=== PATIENT | male | born 1990 | race Two or more races ===

== ENCOUNTER 2016-11-17 12:09 | Day surgery (SDC) | payer BC ==
[~2016-11-17] VITALS: Ht 185.4 cm; Wt 103.3 kg
[~2016-11-17 12:09] MED LIST: ACET325T14 PO; BUPIVACAINE/PF 0.25% ONE; EPINEPHRINE 1 MG/ML, 1ML ONE; LIDOCAINE/PF 1%, 30ML ONE; MIGRAINE MED; ROPIvacaine/PF 0.5%, 30 ML ONE
[2016-11-17 12:35] VITALS: BP 123/93
[2016-11-17] MEDS ORDERED: LACTATED RINGERS 1,000 ML IV SCH (13:00)
[2016-11-17] MEDS ORDERED: MIDAZOLAM 1 MG/ML, 2ML ONE (14:02)
[2016-11-17] MEDS ORDERED: FENTANYL PF 100 MCG/2ML ONE ×3 (14:02→15:15)
[2016-11-17] MEDS ORDERED: CEFAZOLIN 1,000 MG ONE (14:22)
[2016-11-17] MEDS ORDERED: ONDANSETRON 2MG/ML, 2ML ONE (14:22)
[2016-11-17] MEDS ORDERED: PROPOFOL 10 MG/ML, 20ML ONE ×3 (14:22)
[2016-11-17] MEDS ORDERED: DEXAMETHASONE 4 MG/ML, 1ML ONE (14:22)
[2016-11-17] MEDS ORDERED: ACETAMINOPHEN 650 MG/20.3 ML UDC ONE (15:15)
[2016-11-17] MEDS ORDERED: OXYcodone 5 MG/5 ML ORAL.SOL UDC ONE (15:15)
[2016-11-17] MEDS: FENTANYL PF 100 MCG/2ML IV PRN ×3 (15:17→15:39)
[2016-11-17] MEDS ORDERED: MEPERIDINE/PF 25MG/0.5ML ONE (15:23)
[2016-11-17] MEDS ORDERED: OXYcodone 5 MG/5 ML ORAL.SOL UDC PO PRN (15:30)
[2016-11-17] MEDS ORDERED: ACETAMINOPHEN 325 MG TABLET PO PRN (15:30)
[2016-11-17] MEDS ORDERED: HYDROmorphone 1 MG/ML, 1ML IV PRN ×2 (15:30→17:30)
[2016-11-17] MEDS ORDERED: PROMETHAZINE 25 MG/ML, 1ML IV PRN (15:30)
[2016-11-17] MEDS ORDERED: HYDROcodone/APAP 7.5-325MG/15ML UDC PO PRN (15:30)
[2016-11-17] MEDS ORDERED: MEPERIDINE/PF 25MG/0.5ML IVPush PRN (15:30)
[2016-11-17] MEDS ORDERED: HYDROmorphone 1 MG/ML, 1ML ONE (15:40)
[2016-11-17] MEDS ORDERED: KETOROLAC 30 MG/1 ML ONE (17:23)
[2016-11-17] MEDS ORDERED: KETOROLAC 30 MG/1 ML IVPush PRN (17:30)
[2016-11-17] MEDS ORDERED: HYDROmorphone 2 MG/ML, 1ML ONE (17:32)
== END 2016-11-17 18:20 ==
LOC: OUT 12:09
PROVIDERS: ATTEND Orthopaedic Surgery
DX: S83.252A Bucket-handle tear of lateral meniscus, current injury, left knee, initial encounter (principal); M94.262 Chondromalacia, left knee; X58.XXXA Exposure to other specified factors, initial encounter; Y93.89 Activity, other specified; Y92.89 Other specified places as the place of occurrence of the external cause; Y99.8 Other external cause status
CPT/HCPCS: 29879; 29882; J0171; J0690; J1100; J1170; J1885; J2175; J2250; J2405; J2704; J2795; J3010; J3490; J7120

== ENCOUNTER 2017-06-01 18:30 | Emergency (ER) | payer BC ==
[~2017-06-01] VITALS: Ht 188 cm; Wt 103.0 kg
[~2017-06-01 18:30] MED LIST changes: -BUPIVACAINE/PF 0.25% ONE; -EPINEPHRINE 1 MG/ML, 1ML ONE; -LIDOCAINE/PF 1%, 30ML ONE; -ROPIvacaine/PF 0.5%, 30 ML ONE
[2017-06-01 18:36] VITALS: BP 141/80
[2017-06-01 19:40] LABS: MICROSCOPIC NOT IND
[2017-06-01 19:46] LABS: CULTURE INDICATED? NO
[2017-06-01] MEDS ORDERED: KETOROLAC 30 MG/1 ML ONE (19:53)
[2017-06-01] MEDS ORDERED: METHOCARBAMOL 750 MG TABLET ONE (19:53)
[2017-06-01] MEDS ORDERED: KETOROLAC 30 MG/1 ML IM ONE (20:00)
[2017-06-01] MEDS ORDERED: METHOCARBAMOL 750 MG TABLET PO ONE (20:00)
== END 2017-06-01 20:39 | disposition home or self-care (01) ==
LOC: ED 20:30
DX: S39.012A Strain of muscle, fascia and tendon of lower back, initial encounter (principal); M54.42 Lumbago with sciatica, left side; M51.36 Other intervertebral disc degeneration, lumbar region; Z90.49 Acquired absence of other specified parts of digestive tract; X58.XXXA Exposure to other specified factors, initial encounter; Y93.89 Activity, other specified; Y99.8 Other external cause status; Y92.89 Other specified places as the place of occurrence of the external cause
CPT/HCPCS: 72110; 81003; 96372; 99285; J1885